=== PATIENT | male | born 1930 | race Caucasian/White ===

== ENCOUNTER → 2017-01-14 | Outpatient (CLI) | payer MEDICARE, OTHER | LOC: LAB 14:26 | DX: I10 Essential (primary) hypertension (principal); J44.0 Chronic obstructive pulmonary disease with (acute) lower respiratory infection; I48.0 Paroxysmal atrial fibrillation; B86 Scabies; B35.3 Tinea pedis; L30.8 Other specified dermatitis ==

== ENCOUNTER → 2017-04-14 | Outpatient (CLI) | payer MEDICARE, OTHER ==
[~2017-04-14] VITALS: Ht 167.6 cm; Wt 84.1 kg
[~2017-04-14] MED LIST: ASPIRIN 32325 MG/TAB PO; CALCIUM-VITAMI1 EAC1 PO; CERAVE453 GM TP; CLOBETASOL OINT TOP; HYDROCHLOROTHIA1 T14 PO; ISOSORBIDE30 MG PO; NATURAL VITAM1000 MG PO; OMEPRAZOLE20 MG PO; SPECTAZOLE 1% C15 GM TP; THEO-24 20200 MG/CAP PO; VITAMIN E1000 UNI1 PO; XARELTO20 MG PO
[2017-04-14 12:06] VITALS: BP 139/75
== END ==
LOC: AMSURD 11:48
DX: H25.13 Age-related nuclear cataract, bilateral (principal); I48.0 Paroxysmal atrial fibrillation; I12.9 Hypertensive chronic kidney disease with stage 1 through stage 4 chronic kidney disease, or unspecified chronic kidney disease; I87.2 Venous insufficiency (chronic) (peripheral); J44.0 Chronic obstructive pulmonary disease with (acute) lower respiratory infection

== ENCOUNTER → 2017-12-26 | Outpatient (CLI) | payer MEDICARE, OTHER ==
[2017-04-14 12:06] VITALS: BP 139/75
[2017-12-26 09:13] LABS: ALBUMIN 4.1 g/dL (3.5-5.0); BUN/CREATININE RATIO 14.8 (6.0-26.0); CALCIUM 9.6 mg/dL (8.4-10.2); POTASSIUM 4.7 mmol/L (3.6-5.0); TOTAL BILIRUBIN 0.8 mg/dL (0.2-1.3); TOTAL PROTEIN 7.6 g/dL (6.3-8.2)
== END ==
LOC: LAB 08:32
PROVIDERS: Family Medicine
DX: Z00.00 Encounter for general adult medical examination without abnormal findings (principal); E78.5 Hyperlipidemia, unspecified; I12.9 Hypertensive chronic kidney disease with stage 1 through stage 4 chronic kidney disease, or unspecified chronic kidney disease; I35.0 Nonrheumatic aortic (valve) stenosis; I48.0 Paroxysmal atrial fibrillation; J44.9 Chronic obstructive pulmonary disease, unspecified; L28.1 Prurigo nodularis; D16.20 Benign neoplasm of long bones of unspecified lower limb

== ENCOUNTER → 2018-08-29 | Outpatient (CLI) | payer MEDICARE, OTHER ==
[2017-04-14 12:06] VITALS: BP 139/75
[2018-08-29 11:23] LABS: ALBUMIN 4.3 g/dL (3.5-5.0); AST-SGOT 34 U/L (17-59); CALCIUM 9.2 mg/dL (8.4-10.2); CARBON DIOXIDE 25 mmol/L (22-30); GLUCOSE 94 mg/dL (75-110); SODIUM 136 mmol/L (137-145); TOTAL BILIRUBIN 0.5 mg/dL (0.2-1.3); TOTAL PROTEIN 7.2 g/dL (6.3-8.2)
[2018-08-29 11:40] LABS: HEMATOCRIT 33.5 % (42.0-52.0); HEMOGLOBIN 11.1 g/dL (13.5-18.0); MEAN PLATELET VOLUME 9.3 fl (7.4-10.4); RED BLOOD COUNT 3.65 M/mm3 (4.20-5.60); RED CELL DISTRIBUTION WIDTH 12.7 % (11.5-14.5); WHITE BLOOD COUNT 6.7 K/mm3 (4.8-10.8)
[2018-08-29 11:52] LABS: ALT/SGPT < 3 U/L (21-72)
== END ==
LOC: LAB 10:56
PROVIDERS: Internal Medicine Interventional Cardiology
DX: I99.8 Other disorder of circulatory system (principal)

== ENCOUNTER → 2018-09-25 | Outpatient (CLI) | payer MEDICARE, OTHER ==
[2017-04-14 12:06] VITALS: BP 139/75
== END ==
LOC: RAD 16:54
DX: R05 Cough (principal)

== ENCOUNTER → 2018-09-29 | Outpatient (CLI) | payer MEDICARE, OTHER ==
[2017-04-14 12:06] VITALS: BP 139/75
[2018-09-29 12:05] LABS: ALBUMIN 4.3 g/dL (3.5-5.0); DIRECT BILIRUBIN 0.4 mg/dL (0.0-0.4); TOTAL BILIRUBIN 0.4 mg/dL (0.2-1.3); TOTAL PROTEIN 7.1 g/dL (6.3-8.2)
== END ==
LOC: LAB 11:10
PROVIDERS: Family Medicine
DX: I48.0 Paroxysmal atrial fibrillation (principal)

== ENCOUNTER 2019-01-29 11:19 | Emergency (ER) | payer MEDICARE, OTHER ==
[~2019-01-29] VITALS: Ht 165.1 cm; Wt 86.4 kg
[2019-01-29 12:04] LABS: POTASSIUM 4.6 mmol/L (3.5-5.1); SODIUM 134 mmol/L (136-145)
[2019-01-29] MEDS ORDERED: ASPIRIN 81M81 MG/TA2 PO (12:05)
[2019-01-29 12:06] LABS: CALCIUM 9.2 mg/dL (8.3-10.5); EOS # 0.2 (0.04-0.40); EOS % 2.6 % (0.0-4.0); HEMATOCRIT 27.6 % (42.0-52.0); HEMOGLOBIN 8.8 g/dL (13.5-18.0); MEAN CELL VOLUME 82 fl (78-100); MEAN CORPUSCULAR HEMOGLOBIN 26 pg (27-31); MEAN CORPUSCULAR HGB CONC 32 g/dL (33-37); MONO # 0.8 (0.20-0.80); NEU # 6.1 (1.40-6.50); PLATELET COUNT 315 K/mm3 (130-400); RED BLOOD COUNT 3.35 M/mm3 (4.20-5.60); RED CELL DISTRIBUTION WIDTH 15.5 % (11.5-14.5); WHITE BLOOD COUNT 8.1 K/mm3 (4.8-10.8)
[2019-01-29 12:07] LABS: TOTAL PROTEIN 6.8 g/dL (6.2-8.1)
[2019-01-29 12:08] LABS: CARBON DIOXIDE 21 mmol/L (23-31); GLUCOSE 101 mg/dL (75-110)
[2019-01-29 12:09] LABS: TOTAL BILIRUBIN 0.3 mg/dL (0.2-1.2)
[2019-01-29] MEDS ORDERED: RANOLAZINE ER500 MG PO (12:10)
[2019-01-29 12:12] LABS: AST-SGOT 20 U/L (5-34)
[2019-01-29 12:15] LABS: ALT/SGPT 14 U/L (0-55)
[2019-01-29] MEDS ORDERED: CORDARONE200 MG/TAB PO (12:17)
[2019-01-29 12:38] LABS: TROPONIN-I < 0.03 ng/mL (<0.030)
[2019-01-29 13:37] LABS: D-DIMER 0.35 mg/L FEU (0.15-0.50)
[2019-01-29 14:09] VITALS: BP 93/56
== END 2019-01-29 14:04 | disposition home or self-care (01) ==
LOC: ED 11:19
PROVIDERS: Nurse Practitioner Primary Care
DX: E86.0 Dehydration (principal); R06.00 Dyspnea, unspecified; I48.91 Unspecified atrial fibrillation; I10 Essential (primary) hypertension; J44.9 Chronic obstructive pulmonary disease, unspecified; E78.5 Hyperlipidemia, unspecified; Z79.01 Long term (current) use of anticoagulants

== ENCOUNTER → 2019-01-31 | Outpatient (CLI) | payer MEDICARE, OTHER ==
[2019-01-29 14:09] VITALS: BP 93/56
[~2019-01-31] MED LIST changes: +ASPIRIN 81M81 MG/TA2 PO; +CORDARONE200 MG/TAB PO; +RANOLAZINE ER500 MG PO
[2019-01-31 15:50] LABS: HEMATOCRIT 27.7 % (42.0-52.0); HEMOGLOBIN 8.9 g/dL (13.5-18.0)
== END ==
LOC: LAB 15:26
PROVIDERS: Nurse Practitioner Primary Care
DX: E86.0 Dehydration (principal); R06.09 Other forms of dyspnea

== ENCOUNTER → 2019-02-05 | Outpatient (CLI) | payer MEDICARE, OTHER ==
[2019-01-29 14:09] VITALS: BP 93/56
== END ==
LOC: LAB 11:28
DX: D64.9 Anemia, unspecified (principal)

== ENCOUNTER → 2019-04-30 | Outpatient (CLI) | payer MEDICARE, OTHER ==
[2019-04-30 09:55] LABS: EOS # 0.3 (0.04-0.40); EOS % 4.9 % (0.0-4.0); HEMATOCRIT 33.8 % (42.0-52.0); HEMOGLOBIN 11.3 g/dL (13.5-18.0); MEAN CELL VOLUME 94 fl (78-100); MEAN CORPUSCULAR HEMOGLOBIN 31 pg (27-31); MEAN CORPUSCULAR HGB CONC 33 g/dL (33-37); MEAN PLATELET VOLUME 9.2 fl (7.4-10.4); MONO # 0.7 (0.20-0.80); NEU # 4.6 (1.40-6.50); PLATELET COUNT 251 K/mm3 (130-400); RED BLOOD COUNT 3.61 M/mm3 (4.20-5.60); RED CELL DISTRIBUTION WIDTH 15.4 % (11.5-14.5); WHITE BLOOD COUNT 6.7 K/mm3 (4.8-10.8)
[2019-04-30 10:01] LABS: CALCIUM 9.3 mg/dL (8.3-10.5)
[2019-04-30 10:02] LABS: TOTAL PROTEIN 6.8 g/dL (6.2-8.1)
[2019-04-30 10:04] LABS: TOTAL BILIRUBIN 0.4 mg/dL (0.2-1.2)
== END ==
LOC: LAB 09:24
PROVIDERS: Internal Medicine Interventional Cardiology
DX: R06.02 Shortness of breath (principal)

== ENCOUNTER → 2019-06-25 | Outpatient (CLI) | payer MEDICARE, OTHER ==
[2019-06-25 11:53] LABS: HEMATOCRIT 29.3 % (42.0-52.0); HEMOGLOBIN 9.6 g/dL (13.5-18.0); MEAN PLATELET VOLUME 8.9 fl (7.4-10.4); WHITE BLOOD COUNT 9.3 K/mm3 (4.8-10.8)
[2019-06-25 12:13] LABS: POTASSIUM 4.9 mmol/L (3.5-5.1)
[2019-06-25 12:14] LABS: CALCIUM 8.9 mg/dL (8.3-10.5)
== END ==
LOC: LAB 11:26
PROVIDERS: Family Medicine
DX: D64.9 Anemia, unspecified (principal); I10 Essential (primary) hypertension

== ENCOUNTER → 2019-07-06 | Outpatient (CLI) | payer MEDICARE, OTHER | LOC: LAB 11:30 | PROVIDERS: Family Medicine | DX: I12.9 Hypertensive chronic kidney disease with stage 1 through stage 4 chronic kidney disease, or unspecified chronic kidney disease (principal) ==

== ENCOUNTER 2019-07-18 15:30 | Outpatient (RCR) | payer MEDICARE, OTHER ==
[~2019-07-18 15:30] MED LIST changes: -OMEPRAZOLE20 MG PO; +PRILOSEC OTC20 MG PO
[2019-08-22] MEDS ORDERED: RT ADVAIR HFA 1112 G IH (14:19)
[2019-08-22] MEDS ORDERED: AMLODIPINE BES2.5 MG PO (14:20)
[2019-08-22] MEDS ORDERED: ATROVENT I0.2 MG/1 M IH (14:20)
[2019-08-22] MEDS ORDERED: PRINIVIL10 M1 PO (14:21)
[2019-08-22] MEDS ORDERED: FLONASE ALLERG9.9 ML NS (14:22)
[2019-08-22] MEDS ORDERED: RANEXA500 M1 PO (14:23)
[2019-08-28] MEDS ORDERED: AMIODARONE200 MG PO (21:20)
== END 2019-09-12 | disposition still patient (30) ==
LOC: PT
DX: R26.81 Unsteadiness on feet (principal); R53.81 Other malaise

== ENCOUNTER → 2019-07-25 | Outpatient (CLI) | payer MEDICARE, OTHER ==
[~2019-07-25] MED LIST changes: +OMEPRAZOLE20 MG PO; -PRILOSEC OTC20 MG PO
[2019-07-25 22:33] LABS: FOLATE (FOLIC ACID) 11.2 ng/mL (7.0-31.4)
== END ==
LOC: LAB 13:32
PROVIDERS: Family Medicine
DX: D64.9 Anemia, unspecified (principal)

== ENCOUNTER 2019-08-22 13:48 | Emergency (ER) | payer MEDICARE, OTHER ==
[~2019-08-22] VITALS: Ht 172.7 cm; Wt 93.6 kg
[~2019-08-22 13:48] MED LIST changes: -OMEPRAZOLE20 MG PO; +PRILOSEC OTC20 MG PO
[2019-08-22] MEDS ORDERED: RT ADVAIR HFA 1112 G IH (14:19)
[2019-08-22] MEDS ORDERED: AMLODIPINE BES2.5 MG PO (14:20)
[2019-08-22] MEDS ORDERED: ATROVENT I0.2 MG/1 M IH (14:20)
[2019-08-22] MEDS ORDERED: PRINIVIL10 M1 PO (14:21)
[2019-08-22] MEDS ORDERED: FLONASE ALLERG9.9 ML NS (14:22)
[2019-08-22] MEDS ORDERED: RANEXA500 M1 PO (14:23)
[2019-08-22 14:31] LABS: HEMATOCRIT 30.8 % (42.0-52.0); HEMOGLOBIN 9.7 g/dL (13.5-18.0); MEAN CELL VOLUME 99 fl (78-100); MEAN CORPUSCULAR HEMOGLOBIN 31 pg (27-31); MEAN CORPUSCULAR HGB CONC 32 g/dL (33-37); MEAN PLATELET VOLUME 9.4 fl (7.4-10.4); PLATELET COUNT 216 K/mm3 (130-400); RED BLOOD COUNT 3.11 M/mm3 (4.20-5.60); RED CELL DISTRIBUTION WIDTH 13.4 % (11.5-14.5); WHITE BLOOD COUNT 12.2 K/mm3 (4.8-10.8)
[2019-08-22 14:34] LABS: ALBUMIN 3.9 g/dL (3.4-4.8); POTASSIUM 3.9 mmol/L (3.5-5.1); SODIUM 133 mmol/L (136-145)
[2019-08-22 14:36] LABS: GLUCOSE 121 mg/dL (75-110); TOTAL PROTEIN 6.6 g/dL (6.2-8.1)
[2019-08-22 14:37] LABS: CARBON DIOXIDE 18 mmol/L (23-31)
[2019-08-22 14:38] LABS: TOTAL BILIRUBIN 0.4 mg/dL (0.2-1.2)
[2019-08-22 14:42] LABS: AST-SGOT 31 U/L (5-34)
[2019-08-22 14:43] LABS: ALT/SGPT 26 U/L (0-55)
[2019-08-22 14:46] LABS: NEUTROPHILS 92 % (42-75)
[2019-08-22 14:47] LABS: LYMPHOCYTE 2 % (20-51); MONOCYTE 6 % (3-10)
[2019-08-22 14:49] LABS: TROPONIN-I < 0.03 ng/mL (<0.030)
[2019-08-22 16:10] LABS: URINE APPEARANCE CLEAR; URINE BILIRUBIN NEGATIVE (NEGATIVE); URINE BLOOD TRACE (NEGATIVE); URINE COLOR YELLOW; URINE GLUCOSE NEGATIVE (NEGATIVE); URINE KETONE NEGATIVE (NEGATIVE); URINE LEUKOCYTE ESTERASE NEGATIVE (NEGATIVE); URINE NITRATE NEGATIVE (NEGATIVE); URINE PROTEIN(semi-quant) 1+ mg/dL (NEGATIVE); URINE UROBILINOGEN NORMAL (NORMAL)
[2019-08-22 19:34] VITALS: BP 92/55
== END 2019-08-22 19:35 | disposition short-term general hospital (02) ==
LOC: ED 13:48
PROVIDERS: Family Medicine; Physician Assistant
DX: J44.9 Chronic obstructive pulmonary disease, unspecified (principal); J18.9 Pneumonia, unspecified organism; R06.03 Acute respiratory distress; I10 Essential (primary) hypertension; I48.91 Unspecified atrial fibrillation; K21.9 Gastro-esophageal reflux disease without esophagitis; Z79.82 Long term (current) use of aspirin; Z95.0 Presence of cardiac pacemaker
CPT/HCPCS: A4216; A4618; J0456; J0696; J1940; J2405; J2930; J7050

== ENCOUNTER → 2019-08-30 | Outpatient (CLI) | payer MEDICARE, OTHER ==
[~2019-08-30] MED LIST changes: +AMIODARONE200 MG PO; +AMLODIPINE BES2.5 MG PO; +ATROVENT I0.2 MG/1 M IH; +FLONASE ALLERG9.9 ML NS; +PRINIVIL10 M1 PO; +RANEXA500 M1 PO; +RT ADVAIR HFA 1112 G IH
[2019-08-30 14:33] VITALS: BP 142/71
[2019-08-30 15:32] LABS: HEMOGLOBIN 9.9 g/dL (13.5-18.0); MEAN CELL VOLUME 99 fl (78-100); MEAN CORPUSCULAR HEMOGLOBIN 31 pg (27-31); MEAN CORPUSCULAR HGB CONC 31 g/dL (33-37); MEAN PLATELET VOLUME 8.9 fl (7.4-10.4); PLATELET COUNT 357 K/mm3 (130-400); RED BLOOD COUNT 3.25 M/mm3 (4.20-5.60); RED CELL DISTRIBUTION WIDTH 13.1 % (11.5-14.5); WHITE BLOOD COUNT 9.4 K/mm3 (4.8-10.8)
[2019-08-30 16:00] LABS: ALBUMIN 3.8 g/dL (3.4-4.8); POTASSIUM 4.6 mmol/L (3.5-5.1)
[2019-08-30 16:01] LABS: CALCIUM 8.7 mg/dL (8.3-10.5)
[2019-08-30 16:02] LABS: TOTAL PROTEIN 6.8 g/dL (6.2-8.1)
[2019-08-30 16:04] LABS: TOTAL BILIRUBIN 0.2 mg/dL (0.2-1.2)
[2019-08-31 14:13] LABS: LYMPHOCYTE 19 % (20-51); MONOCYTE 8 % (3-10); NEUTROPHILS 66 % (42-75)
== END ==
LOC: LAB 15:20
PROVIDERS: Family Medicine
DX: J44.9 Chronic obstructive pulmonary disease, unspecified (principal); I48.0 Paroxysmal atrial fibrillation; J18.9 Pneumonia, unspecified organism; D64.9 Anemia, unspecified; I35.0 Nonrheumatic aortic (valve) stenosis; R79.89 Other specified abnormal findings of blood chemistry

== ENCOUNTER 2019-08-31 14:17 | Outpatient (RCR) | payer MEDICARE, OTHER ==
[2019-08-28 14:30] VITALS: BP 139/70
[2019-08-29 13:58] VITALS: BP 129/66
[2019-08-30 14:33] VITALS: BP 142/71
[~2019-08-31] VITALS: Ht 165.1 cm; Wt 84.1 kg
[2019-08-31 14:32] VITALS: BP 167/78
== END 2019-08-31 14:30 ==
LOC: AMSURD 14:17
DX: Z79.2 Long term (current) use of antibiotics (principal); B95.1 Streptococcus, group B, as the cause of diseases classified elsewhere
CPT/HCPCS: J0696

== ENCOUNTER → 2019-09-13 | Outpatient (CLI) | payer MEDICARE, OTHER ==
[2019-08-31 14:32] VITALS: BP 167/78
== END ==
LOC: LAB 14:10
DX: I48.0 Paroxysmal atrial fibrillation (principal); J18.9 Pneumonia, unspecified organism; J44.9 Chronic obstructive pulmonary disease, unspecified; D64.9 Anemia, unspecified; I35.0 Nonrheumatic aortic (valve) stenosis

== ENCOUNTER → 2020-02-29 | Outpatient (CLI) | payer MEDICARE, OTHER ==
[2020-02-29 11:57] LABS: HEMATOCRIT 37.5 % (42.0-52.0); HEMOGLOBIN 12.6 g/dL (13.5-18.0); MEAN PLATELET VOLUME 9.1 fl (7.4-10.4); RED BLOOD COUNT 4.1 M/mm3 (4.20-5.60); WHITE BLOOD COUNT 7.2 K/mm3 (4.8-10.8)
[2020-02-29 12:07] LABS: CALCIUM 9.3 mg/dL (8.3-10.5)
== END ==
LOC: LAB 11:40 → RAD 11:40
PROVIDERS: Family Medicine
DX: M51.36 Other intervertebral disc degeneration, lumbar region (principal); M47.816 Spondylosis without myelopathy or radiculopathy, lumbar region; M41.86 Other forms of scoliosis, lumbar region

== ENCOUNTER 2020-04-07 11:15 | Outpatient (RCR) | payer MEDICARE, OTHER ==
[~2020-04-07 11:15] MED LIST changes: +FEOSOL325 MG PO; +FLUTICASON0.05 MG/AC NS; +LEVOTHYROXIN0.088 MG PO; +NAPROXEN500 MG PO; +PREDNISONE20 M1 PO; +TRAMADOL 50 MG TAB PO
== END 2020-04-07 12:00 | disposition still patient (30) ==
LOC: PT 11:15
DX: M54.2 Cervicalgia (principal)

== ENCOUNTER → 2020-09-09 | Outpatient (CLI) | payer MEDICARE, OTHER ==
[2020-03-26 15:10] VITALS: BP 141/89
[~2020-09-09] MED LIST changes: +ALLEGRA ALLERGY60 MG PO; +AMOXICILLIN875 MG PO; +CEFDINIR300 MG PO; +CEPHALEXIN500 M2 PO; +CLOBETASOL PROP15 GM TP; +DEXAMETHASONE2 M1 PO; +LIPITOR 10M10 MG/TAB PO; +LISINOPRIL10 MG PO; +MUPIROCIN2% TP; +NORVASC 5MG5 MG/TAB PO; +PACERONE200 MG PO; -PRINIVIL10 M1 PO; +SEPTRA DS 8001 TAB PO; +TOPROL XL100 MG PO
[2020-09-09 09:16] LABS: EOS # 0.2 (0.04-0.40); EOS % 3.8 % (0.0-4.0); HEMATOCRIT 40.2 % (42.0-52.0); HEMOGLOBIN 13.3 g/dL (13.5-18.0); LYMPH# 1.1 (1.50-4.00); MEAN CELL VOLUME 93 fl (78-100); MEAN CORPUSCULAR HEMOGLOBIN 31 pg (27-31); MEAN CORPUSCULAR HGB CONC 33 g/dL (33-37); MEAN PLATELET VOLUME 9.4 fl (7.4-10.4); MONO # 0.7 (0.20-0.80); NEU # 3.8 (1.40-6.50); PLATELET COUNT 209 K/mm3 (130-400); RED BLOOD COUNT 4.33 M/mm3 (4.20-5.60); RED CELL DISTRIBUTION WIDTH 13.2 % (11.5-14.5); WHITE BLOOD COUNT 5.7 K/mm3 (4.8-10.8)
[2020-09-09 09:24] LABS: POTASSIUM 4.3 mmol/L (3.5-5.1)
[2020-09-09 09:25] LABS: CALCIUM 9.5 mg/dL (8.3-10.5)
== END ==
LOC: LAB 08:30
PROVIDERS: Family Medicine
DX: N18.30 Chronic kidney disease, stage 3 unspecified (principal); I25.10 Atherosclerotic heart disease of native coronary artery without angina pectoris; D64.9 Anemia, unspecified; E03.9 Hypothyroidism, unspecified; I73.9 Peripheral vascular disease, unspecified

== ENCOUNTER → 2020-11-05 | Outpatient (CLI) | payer MEDICARE, OTHER ==
[2020-03-26 15:10] VITALS: BP 141/89
[2020-11-05 14:55] LABS: HEMATOCRIT 38.1 % (42.0-52.0); HEMOGLOBIN 12.5 g/dL (13.5-18.0); MEAN PLATELET VOLUME 9.5 fl (7.4-10.4); RED BLOOD COUNT 4.11 M/mm3 (4.20-5.60); WHITE BLOOD COUNT 9.2 K/mm3 (4.8-10.8)
[2020-11-05 15:16] LABS: POTASSIUM 4.4 mmol/L (3.5-5.1)
[2020-11-05 15:18] LABS: CALCIUM 9.1 mg/dL (8.3-10.5)
== END ==
LOC: LAB 14:36
PROVIDERS: Internal Medicine Interventional Cardiology
DX: Z01.812 Encounter for preprocedural laboratory examination (principal); Z11.59 Encounter for screening for other viral diseases; L28.1 Prurigo nodularis; R60.0 Localized edema; Z20.822 Contact with and (suspected) exposure to COVID-19

== ENCOUNTER 2020-12-02 19:51 | Emergency (ER) | payer MEDICARE, OTHER ==
[~2020-12-02 19:51] MED LIST changes: -ALLEGRA ALLERGY60 MG PO; -AMOXICILLIN875 MG PO; -CEFDINIR300 MG PO; -CEPHALEXIN500 M2 PO; -CLOBETASOL PROP15 GM TP; -DEXAMETHASONE2 M1 PO; -LIPITOR 10M10 MG/TAB PO; -MUPIROCIN2% TP; -NORVASC 5MG5 MG/TAB PO; -PACERONE200 MG PO; -SEPTRA DS 8001 TAB PO; -TOPROL XL100 MG PO
[2020-12-02] MEDS ORDERED: TOPROL XL100 MG PO (20:30)
[2020-12-02] MEDS ORDERED: RANEXA500 M1 PO (20:31)
[2020-12-02] MEDS ORDERED: PACERONE200 MG PO (20:31)
[2020-12-02] MEDS ORDERED: NORVASC 5MG5 MG/TAB PO (20:32)
[2020-12-02] MEDS ORDERED: LIPITOR 10M10 MG/TAB PO (20:33)
[2020-12-02 21:04] LABS: HEMATOCRIT 40.1 % (42.0-52.0); HEMOGLOBIN 13.6 g/dL (13.5-18.0); MEAN CELL VOLUME 91 fl (78-100); MEAN CORPUSCULAR HEMOGLOBIN 31 pg (27-31); MEAN CORPUSCULAR HGB CONC 34 g/dL (33-37); MEAN PLATELET VOLUME 9.2 fl (7.4-10.4); PLATELET COUNT 205 K/mm3 (130-400); WHITE BLOOD COUNT 11.5 K/mm3 (4.8-10.8)
[2020-12-02 21:07] LABS: ALBUMIN 4.1 g/dL (3.4-4.8)
[2020-12-02 21:08] LABS: POTASSIUM 4.7 mmol/L (3.5-5.1)
[2020-12-02 21:09] LABS: CALCIUM 9.4 mg/dL (8.3-10.5)
[2020-12-02 21:10] LABS: TOTAL PROTEIN 7.3 g/dL (6.2-8.1)
[2020-12-02 21:47] LABS: TOTAL BILIRUBIN 0.7 mg/dL (0.2-1.2)
[2020-12-02 21:56] LABS: LYMPHOCYTE 2 % (20-51); MONOCYTE 6 % (3-10); NEUTROPHILS 90 % (42-75)
[2020-12-02 21:58] LABS: URINE APPEARANCE CLEAR; URINE BILIRUBIN NEGATIVE (NEGATIVE); URINE BLOOD NEGATIVE (NEGATIVE); URINE COLOR YELLOW; URINE GLUCOSE NEGATIVE (NEGATIVE); URINE KETONE NEGATIVE (NEGATIVE); URINE LEUKOCYTE ESTERASE NEGATIVE (NEGATIVE); URINE NITRATE NEGATIVE (NEGATIVE); URINE PROTEIN(semi-quant) NEGATIVE (NEGATIVE); URINE UROBILINOGEN NORMAL (NORMAL); URINE WBC 0-1 /hpf (0-3)
[2020-12-02 21:59] LABS: URINE MUCUS PRESENT (NOT PRESENT)
[2020-12-02 22:52] VITALS: BP 126/69
[2020-12-03] MEDS ORDERED: CEFDINIR300 MG PO (11:31)
[2021-02-17] MEDS ORDERED: MUPIROCIN2% TP (11:33)
[2021-02-17] MEDS ORDERED: CEPHALEXIN500 M2 PO (11:33)
[2021-05-10] MEDS ORDERED: SEPTRA DS 8001 TAB PO (22:26)
[2021-05-10] MEDS ORDERED: AMOXICILLIN875 MG PO (22:26)
[2021-05-10] MEDS ORDERED: CLOBETASOL PROP15 GM TP (22:29)
[2021-05-10] MEDS ORDERED: ALLEGRA ALLERGY60 MG PO (22:29)
[2021-05-10] MEDS ORDERED: RANOLAZINE ER500 MG PO (22:29)
[2021-05-16] MEDS ORDERED: ISOSORBIDE30 MG PO (00:14)
[2021-05-26] MEDS ORDERED: DEXAMETHASONE2 M1 PO (12:54)
== END 2020-12-02 22:52 | disposition other institution (70) ==
LOC: ED 19:51
PROVIDERS: Nurse Practitioner Family
DX: J44.1 Chronic obstructive pulmonary disease with (acute) exacerbation (principal); J18.9 Pneumonia, unspecified organism; I13.0 Hypertensive heart and chronic kidney disease with heart failure and stage 1 through stage 4 chronic kidney disease, or unspecified chronic kidney disease; I50.9 Heart failure, unspecified; N18.9 Chronic kidney disease, unspecified; E86.0 Dehydration; I48.91 Unspecified atrial fibrillation; E03.9 Hypothyroidism, unspecified; R50.9 Fever, unspecified; Z95.0 Presence of cardiac pacemaker; Z79.01 Long term (current) use of anticoagulants; Z79.82 Long term (current) use of aspirin; Z79.899 Other long term (current) drug therapy; Z79.890 Hormone replacement therapy; Z20.822 Contact with and (suspected) exposure to COVID-19
CPT/HCPCS: J7030

== ENCOUNTER 2020-12-04 11:08 | Inpatient (IN) | payer MEDICARE, OTHER ==
[~2020-12-04] VITALS: Ht 160 cm; Wt 89.1 kg
[~2020-12-04 11:08] MED LIST changes: +CEFDINIR300 MG PO; +LIPITOR 10M10 MG/TAB PO; +NORVASC 5MG5 MG/TAB PO; +PACERONE200 MG PO; +TOPROL XL100 MG PO
[2020-12-04 11:45] VITALS: BP 130/80
[2020-12-04 11:51] LABS: URINE APPEARANCE CLEAR; URINE COLOR YELLOW
[2020-12-04 11:52] LABS: URINE BILIRUBIN NEGATIVE (NEGATIVE); URINE BLOOD TRACE (NEGATIVE); URINE GLUCOSE NEGATIVE (NEGATIVE); URINE KETONE NEGATIVE (NEGATIVE); URINE NITRATE NEGATIVE (NEGATIVE); URINE PROTEIN(semi-quant) NEGATIVE (NEGATIVE); URINE UROBILINOGEN NORMAL (NORMAL)
[2020-12-04 11:57] LABS: BASO # 0.01 (0.02-0.10); EOS # 0.02 (0.04-0.40); EOS % 0.1 % (0.0-4.0); HEMATOCRIT 38.9 % (42.0-52.0); HEMOGLOBIN 13.1 g/dL (13.5-18.0); LYMPH# 1.12 (1.50-4.00); MEAN CELL VOLUME 90 fl (78-100); MEAN CORPUSCULAR HEMOGLOBIN 30 pg (27-31); MEAN CORPUSCULAR HGB CONC 34 g/dL (33-37); MEAN PLATELET VOLUME 9.4 fl (7.4-10.4); MONO # 1.44 (0.20-0.80); NEU # 15.53 (1.40-6.50); PLATELET COUNT 231 K/mm3 (130-400); RED BLOOD COUNT 4.31 M/mm3 (4.20-5.60); RED CELL DISTRIBUTION WIDTH 13.1 % (11.5-14.5); WHITE BLOOD COUNT 18.2 K/mm3 (4.8-10.8)
[2020-12-04 12:01] LABS: POTASSIUM 4.4 mmol/L (3.5-5.1)
[2020-12-04 12:02] LABS: CALCIUM 9.3 mg/dL (8.3-10.5)
[2020-12-04 12:05] LABS: TOTAL BILIRUBIN 0.4 mg/dL (0.2-1.2)
[2020-12-04 13:16] LABS: ERYTHROCYTE SEDIMENTATION RATE 18 mm/hr (0-20)
--- NOTE | 2020-12-04 15:17 | NUR ---
SPEAK WITH DENISA PRESLEY REGARDING IV FLUID ORDERS. INTENT WAS FOR PATIENT TO RECEIVE 1L NS AT 500ML/HR AND THEN DECREASE TO 83ML/HR.
[2020-12-04 17:31] VITALS: BP 118/78
--- NOTE | 2020-12-04 19:05 | NUR ---
Report received from Asya Wilkinson RN and Rocio Parada RN
[2020-12-04 21:48] VITALS: BP 126/73
[2020-12-05 00:04] LABS: URINE LEUKOCYTE ESTERASE NEGATIVE (NEGATIVE)
[2020-12-05 02:07] VITALS: BP 119/74
[2020-12-05 05:43] VITALS: BP 121/79
--- NOTE | 2020-12-05 07:00 | NUR ---
Report received from RALF Ramos. Pt resting in bed with eyes closed.
--- NOTE | 2020-12-05 07:17 | NUR ---
Report to Jas Bee LPN.
[2020-12-05 07:24] LABS: BASO # 0.02 (0.02-0.10); EOS # 0.13 (0.04-0.40); EOS % 1.2 % (0.0-4.0); HEMATOCRIT 36.9 % (42.0-52.0); HEMOGLOBIN 12.3 g/dL (13.5-18.0); LYMPH# 1.17 (1.50-4.00); MEAN CELL VOLUME 92 fl (78-100); MEAN CORPUSCULAR HEMOGLOBIN 31 pg (27-31); MEAN CORPUSCULAR HGB CONC 33 g/dL (33-37); MEAN PLATELET VOLUME 9.6 fl (7.4-10.4); MONO # 1.02 (0.20-0.80); NEU # 8.84 (1.40-6.50); PLATELET COUNT 212 K/mm3 (130-400); RED BLOOD COUNT 4.03 M/mm3 (4.20-5.60); RED CELL DISTRIBUTION WIDTH 13.6 % (11.5-14.5); WHITE BLOOD COUNT 11.2 K/mm3 (4.8-10.8)
[2020-12-05 07:57] LABS: POTASSIUM 4.5 mmol/L (3.5-5.1)
[2020-12-05 07:59] LABS: CALCIUM 8.6 mg/dL (8.3-10.5)
--- NOTE | 2020-12-05 08:55 | NUR ---
SPOKE TO LAZARA AT [facility] FOR PICC LINE PLACEMENT. THEY WOULD LIKE PATIENT TO ARRIVE AT 11:00; EMS NOTIFIED AND ARRANGEMENTS MADE FOR TRANSPORTATION. PATIENT IS UPDATED. PROVIDER IS UPDATED ON TIME.
[2020-12-05 10:00] VITALS: BP 111/67
--- NOTE | 2020-12-05 10:15 | NUR ---
PT UP IN CHAIR / TO BATHROOM THIS AM. PT HAS NO NEEDS/COMPLAINTS AT THIS TIME. PATIENT BEING TRANSPORTED TO [facility]IA [facility] FOR PICC LINE PLACEMENT AT 1020.
--- NOTE | 2020-12-05 13:32 | NUR ---
RALF Mojica called and reported that the PICC was placed and is 41cm long. Nurse states it took 2 "sticks" due to dehydration. No other concerns at this time.
--- NOTE | 2020-12-05 15:30 | NUR ---
PATIENT RETURNED VIA TRANSPORT AT 1530 FROM PICC LINE PLACEMENT. PATIENT TOLERATED PROCEDURE WELL. PATIENT CURRENTLY IN BED; NO NEEDS/COMPLAINTS AT THIS TIME.
--- NOTE | 2020-12-05 17:00 | NUR ---
Report received from Jenifer Marin RN and Jas Bee LPN. IV fluids infusing at 83mls/hour. C/o's of PICC line being sore. Wraped warm blanket around PICC site located in right upper arm. Chilango wrap applied around PICC for padding if site gets bumped. Offered to get a order for tylenol, pt declined.
[2020-12-05 17:43] VITALS: BP 160/95
[2020-12-05 21:17] VITALS: BP 137/78
--- NOTE | 2020-12-06 01:30 | NUR ---
IV fluids infused. New bag of NS hung, continues to infuse at 83mls/hr. Has been sleeping with C-pap on. Continues on tele-monitor.
[2020-12-06 01:47] VITALS: BP 136/77
--- NOTE | 2020-12-06 05:20 | NUR ---
Report given to Mercedes Joseph RN
[2020-12-06 05:54] VITALS: BP 156/74
[2020-12-06 06:41] LABS: BASO # 0.03 (0.02-0.10); EOS # 0.22 (0.04-0.40); EOS % 2.6 % (0.0-4.0); HEMATOCRIT 31.8 % (42.0-52.0); HEMOGLOBIN 10.7 g/dL (13.5-18.0); LYMPH# 0.98 (1.50-4.00); MEAN CELL VOLUME 92 fl (78-100); MEAN CORPUSCULAR HEMOGLOBIN 31 pg (27-31); MEAN CORPUSCULAR HGB CONC 34 g/dL (33-37); MEAN PLATELET VOLUME 9.4 fl (7.4-10.4); MONO # 0.82 (0.20-0.80); NEU # 6.38 (1.40-6.50); PLATELET COUNT 192 K/mm3 (130-400); RED BLOOD COUNT 3.47 M/mm3 (4.20-5.60); RED CELL DISTRIBUTION WIDTH 13.8 % (11.5-14.5); WHITE BLOOD COUNT 8.5 K/mm3 (4.8-10.8)
--- NOTE | 2020-12-06 07:00 | NUR ---
Report received from RALF Hunt.
[2020-12-06 08:02] LABS: POTASSIUM 3.9 mmol/L (3.5-5.1)
[2020-12-06 08:03] LABS: CALCIUM 7.6 mg/dL (8.3-10.5)
[2020-12-06 09:43] VITALS: BP 124/77
--- NOTE | 2020-12-06 09:52 | NUR ---
Report taken from RALF Sanchez. Administered breathing treatment. Pt tolerated it well. Pt in chair resting comfortably.
--- NOTE | 2020-12-06 11:12 | NUR ---
Per pt's request, [facility] notified of pt's need for a new strap set up for his cpap. Staff will notify their RT personnal on Tuesday when she returns.
--- NOTE | 2020-12-06 13:12 | NUR ---
Pt had visitors this morning. Had to speak with visitors and explain 2 visitors per day only at this time. Visitors understanding.
[2020-12-06 14:00] VITALS: BP 143/76
--- NOTE | 2020-12-06 15:07 | NUR ---
Pt having more visitors wanting to come see. Nephew allowed to see pt through the window and then talks with him on the phone. Pt out for walk with [employer] - appears a little SOB but pt reports usually he is with activity. Denies any pain. NS IV fluids continue at 83 mls/hr. Lungs clear at this time.
--- NOTE | 2020-12-06 15:35 | NUR ---
PICC drsg noted to have a blood under drsg and blood saturated impregnated disc (all unchanged from this am). PICC drsg changed per protocol. Pt tolerated well. Noted to have mild swelling at insertion site prior to drsg change and unchanged after drsg change completed. Chilango wrap applied to site. Blood return noted upon restarting of IV fluids (stopped during drsg change).
--- NOTE | 2020-12-06 16:10 | NUR ---
IV fluids stopped per order.
[2020-12-06 16:37] VITALS: BP 147/83
--- NOTE | 2020-12-06 16:39 | NUR ---
RESP noted to be 36. Pt denies breathing is any different than his norm. Lungs clear. Will continue to monitor and recheck. Pt reading the paper.
--- NOTE | 2020-12-06 18:00 | NUR ---
Up to BR using cane with steady gait. Voids 200 mls yellow urine. Returns to recliner. SP02 97% on RA upon return to recliner.
--- NOTE | 2020-12-06 18:41 | NUR ---
PT RESTING IN CHAIR AND WATCHING TV. ADMINISTERED ANTIBIOTICS PT TOLERATED WELL.
--- NOTE | 2020-12-06 19:17 | NUR ---
Report to RALF Bergeron.
--- NOTE | 2020-12-06 20:36 | NUR ---
Patient resting in chair. No c/o pain or discomfort. Ambulated from room to hallway. 200 feet total. SBA with gait belt and cane assist. Ambulated to restroom. Independent with pericare and hand hygiene. Ambulated to chair. Patient states, "I'm feeling better since I got here." Call light within reach. Chair alarm on.
[2020-12-06 22:05] VITALS: BP 145/79
[2020-12-07 01:49] VITALS: BP 144/82
[2020-12-07 06:01] VITALS: BP 138/82
--- NOTE | 2020-12-07 07:27 | NUR ---
Report received from RALF Bergeron. Pt sleeping in bed.
[2020-12-07 10:01] VITALS: BP 122/72
--- NOTE | 2020-12-07 10:22 | NUR ---
GOOD APPETITE. PT SITTING IN CHAIR WATCHING TV. PT CALM AND ALERT. ANTIBIOTICS GIVEN W/O COMPLICATION. NO NEW ORDERS.
--- NOTE | 2020-12-07 10:47 | NUR ---
OFFICER REMAINS OUTSIDE OF PTS ROOM. BELONGINGS ARE PACKED AND PACKET IS READY FOR TRANSFER.
--- NOTE | 2020-12-07 12:14 | NUR ---
PT UP IN CHAIR EATING LUNCH TRAY. PT TOLERATING ACTIVITY.
[2020-12-07 13:59] VITALS: BP 136/81
--- NOTE | 2020-12-07 16:13 | NUR ---
PT SLEEPING IN CHAIR. ANCEF GIVEN. PT TOLERATED MEDICATION. NO COMPLICATIONS. PT DENIES PAIN.
[2020-12-07 16:41] VITALS: BP 145/88
--- NOTE | 2020-12-07 17:05 | NUR ---
PT EATING DINNER IN CHAIR. APPETITE GOOD.
--- NOTE | 2020-12-07 19:05 | NUR ---
Report recieved from Xochilt Hyatt RN
--- NOTE | 2020-12-07 19:10 | NUR ---
Patient resting in chair. SBA with cane and gait belt to restroom. No c/o pain or discomfort at this time. Chair alarm on. Call light within reach.
[2020-12-07 22:22] VITALS: BP 140/81
[2020-12-08 02:16] VITALS: BP 132/82
[2020-12-08 05:50] VITALS: BP 158/84
--- NOTE | 2020-12-08 06:13 | NUR ---
Patient independant with HS cares. Wore CPAP machine throughout night. Used urinal, as needed. No c/o pain or disomfort. Resting with eyes closed on hourly rounds. Bed in lowest and locked position. Call light within reach.
[2020-12-08 09:51] VITALS: BP 158/80
[2020-12-08 14:15] VITALS: BP 131/84
[2020-12-08 18:29] VITALS: BP 137/85
--- NOTE | 2020-12-08 19:09 | NUR ---
REPORT GIVEN TO RALF SANDOVAL
--- NOTE | 2020-12-08 19:10 | NUR ---
Report recieved from Renetta Chavarria RN
--- NOTE | 2020-12-08 20:55 | NUR ---
Patient talking on telephone in chair. A&ox4, no c/o pain or discomfort. Eager to go home tomorrow. Breathing tx complete. Chair alarm on. Call light within reach.
[2020-12-08 22:14] VITALS: BP 155/78
--- NOTE | 2020-12-08 22:24 | NUR ---
Results of blood cultures (12/04/20) given to Sybil Wiley APRN
[2020-12-09 02:28] VITALS: BP 129/81
[2020-12-09 05:53] VITALS: BP 134/86
--- NOTE | 2020-12-09 06:05 | NUR ---
Patient states, "I slept good" when asked how well he slept through the night. No c/o pain or discomfort. Eager to go home. Reports he has had skin lesions for 4 years and has been seen/treated by a donations attendant. Reports home is safe to return to. Has family and friends to support him at home. Bed in lowest and locked position. Call light within reach.
--- NOTE | 2020-12-09 07:15 | NUR ---
Report taken from RALF Bergeron. Pt is watching TV in his chair.
--- NOTE | 2020-12-09 07:34 | NUR ---
PT AMBULATED TO RESTROOM. PT WILL SIT IN CHAIR TO EAT BREAKFAST.
[2020-12-09 08:37] LABS: BASO # 0.04 (0.02-0.10); EOS % 5.2 % (0.0-4.0); HEMATOCRIT 37.5 % (42.0-52.0); HEMOGLOBIN 12.4 g/dL (13.5-18.0); LYMPH# 1.23 (1.50-4.00); MEAN CELL VOLUME 92 fl (78-100); MEAN CORPUSCULAR HEMOGLOBIN 30 pg (27-31); MEAN CORPUSCULAR HGB CONC 33 g/dL (33-37); MEAN PLATELET VOLUME 9.1 fl (7.4-10.4); MONO # 0.51 (0.20-0.80); NEU # 7.27 (1.40-6.50); PLATELET COUNT 219 K/mm3 (130-400); RED CELL DISTRIBUTION WIDTH 13.5 % (11.5-14.5); WHITE BLOOD COUNT 9.7 K/mm3 (4.8-10.8)
[2020-12-09 08:49] LABS: ALBUMIN 3.5 g/dL (3.4-4.8); POTASSIUM 4.2 mmol/L (3.5-5.1)
[2020-12-09 08:52] LABS: TOTAL PROTEIN 6.5 g/dL (6.2-8.1)
[2020-12-09 08:54] LABS: TOTAL BILIRUBIN 0.6 mg/dL (0.2-1.2)
[2020-12-09 09:48] VITALS: BP 116/73
--- NOTE | 2020-12-09 11:42 | NUR ---
PT UP IN CHAIR WATCHING TV. CAN GET A RIDE HOME IF DISCHARGED TODAY. PT A&OX4. PT AMBULATORY W/CANE, VOIDING AND HAVING BM.
[2020-12-09 14:12] VITALS: BP 122/78
--- NOTE | 2020-12-09 14:14 | NUR ---
CANCELED STRESS TEST FOR TOMMOROW. SPOKE WITH CHERYL AND WILL MAKE SURE PT RESCHEDULES AT DISCHARGE.
--- NOTE | 2020-12-15 10:32 | NUR ---
12/08/20 0900 PATIENT NOTED TO HAVE OPEN AREAS TO LOWER LIP. HAS 2 ROUND WOUNDS.
[2021-02-17] MEDS ORDERED: CEPHALEXIN500 M2 PO (11:33)
[2021-02-17] MEDS ORDERED: MUPIROCIN2% TP (11:33)
[2021-05-10] MEDS ORDERED: AMOXICILLIN875 MG PO (22:26)
[2021-05-10] MEDS ORDERED: SEPTRA DS 8001 TAB PO (22:26)
[2021-05-10] MEDS ORDERED: CLOBETASOL PROP15 GM TP (22:29)
[2021-05-10] MEDS ORDERED: RANOLAZINE ER500 MG PO (22:29)
[2021-05-10] MEDS ORDERED: ALLEGRA ALLERGY60 MG PO (22:29)
[2021-05-16] MEDS ORDERED: ISOSORBIDE30 MG PO (00:14)
[2021-05-26] MEDS ORDERED: DEXAMETHASONE2 M1 PO (12:54)
== END 2020-12-09 15:56 | disposition swing bed (61) | DRG 872 ==
LOC: MED/SURG 11:08
PROVIDERS: Nurse Practitioner; ADMIT Physician Assistant
DX: R78.81 Bacteremia (principal); I13.0 Hypertensive heart and chronic kidney disease with heart failure and stage 1 through stage 4 chronic kidney disease, or unspecified chronic kidney disease; I48.91 Unspecified atrial fibrillation; J44.9 Chronic obstructive pulmonary disease, unspecified; I50.9 Heart failure, unspecified; I08.3 Combined rheumatic disorders of mitral, aortic and tricuspid valves; N18.9 Chronic kidney disease, unspecified; E03.9 Hypothyroidism, unspecified; E66.9 Obesity, unspecified; B95.61 Methicillin susceptible Staphylococcus aureus infection as the cause of diseases classified elsewhere; R53.81 Other malaise; Z95.0 Presence of cardiac pacemaker; Z79.01 Long term (current) use of anticoagulants; Z79.82 Long term (current) use of aspirin
CPT/HCPCS: J0690; J2543; J3370; J7030; J7050; Q9967

== ENCOUNTER 2020-12-09 15:56 | Inpatient (IN) | payer MEDICARE, OTHER ==
[2020-12-09 17:08] VITALS: BP 122/78
[2020-12-10 05:39] VITALS: BP 143/81
[2020-12-10 16:18] VITALS: BP 141/91
[2020-12-11 05:52] VITALS: BP 102/60
[2020-12-11 07:42] VITALS: BP 120/79
[2020-12-11 15:01] VITALS: BP 121/76
[2020-12-12 05:57] VITALS: BP 153/85
[2020-12-12 17:14] VITALS: BP 130/78
[2020-12-13 05:02] VITALS: BP 146/86
[2020-12-13 17:12] VITALS: BP 131/84
[2020-12-14 06:03] VITALS: BP 145/88
[2020-12-14 17:04] VITALS: BP 135/85
[2020-12-15 05:20] VITALS: BP 125/81
[2020-12-15 17:25] VITALS: BP 130/88
[2020-12-16 05:23] VITALS: BP 133/87
[2020-12-16 17:04] VITALS: BP 133/83
[2020-12-17 05:46] VITALS: BP 128/82
[2020-12-17 09:18] LABS: BASO # 0.06 (0.02-0.10); EOS # 0.23 (0.04-0.40); EOS % 2.4 % (0.0-4.0); HEMATOCRIT 38.9 % (42.0-52.0); HEMOGLOBIN 12.9 g/dL (13.5-18.0); LYMPH# 1.11 (1.50-4.00); MEAN CELL VOLUME 92 fl (78-100); MEAN CORPUSCULAR HEMOGLOBIN 31 pg (27-31); MEAN CORPUSCULAR HGB CONC 33 g/dL (33-37); MEAN PLATELET VOLUME 9.5 fl (7.4-10.4); MONO # 0.51 (0.20-0.80); NEU # 7.46 (1.40-6.50); PLATELET COUNT 211 K/mm3 (130-400); RED BLOOD COUNT 4.23 M/mm3 (4.20-5.60); WHITE BLOOD COUNT 9.4 K/mm3 (4.8-10.8)
[2020-12-17 09:28] LABS: POTASSIUM 4.2 mmol/L (3.5-5.1)
[2020-12-17 09:30] LABS: CALCIUM 8.9 mg/dL (8.3-10.5)
[2020-12-17 17:03] VITALS: BP 118/77
[2020-12-18 06:06] VITALS: BP 146/73
[2020-12-18 17:26] VITALS: BP 132/85
[2020-12-19 05:37] VITALS: BP 131/86
[2021-02-17] MEDS ORDERED: MUPIROCIN2% TP (11:33)
[2021-02-17] MEDS ORDERED: CEPHALEXIN500 M2 PO (11:33)
[2021-05-10] MEDS ORDERED: SEPTRA DS 8001 TAB PO (22:26)
[2021-05-10] MEDS ORDERED: AMOXICILLIN875 MG PO (22:26)
[2021-05-10] MEDS ORDERED: RANOLAZINE ER500 MG PO (22:29)
[2021-05-10] MEDS ORDERED: ALLEGRA ALLERGY60 MG PO (22:29)
[2021-05-10] MEDS ORDERED: CLOBETASOL PROP15 GM TP (22:29)
[2021-05-16] MEDS ORDERED: ISOSORBIDE30 MG PO (00:14)
[2021-05-26] MEDS ORDERED: DEXAMETHASONE2 M1 PO (12:54)
== END 2020-12-19 10:25 | disposition home or self-care (01) | DRG 872 ==
LOC: MED/SURG 15:56
PROVIDERS: ADMIT Nurse Practitioner Family
DX: R78.81 Bacteremia (principal); N17.9 Acute kidney failure, unspecified; I13.0 Hypertensive heart and chronic kidney disease with heart failure and stage 1 through stage 4 chronic kidney disease, or unspecified chronic kidney disease; I48.91 Unspecified atrial fibrillation; J44.9 Chronic obstructive pulmonary disease, unspecified; I50.9 Heart failure, unspecified; I35.0 Nonrheumatic aortic (valve) stenosis; E03.9 Hypothyroidism, unspecified; N18.9 Chronic kidney disease, unspecified; E66.9 Obesity, unspecified; B95.61 Methicillin susceptible Staphylococcus aureus infection as the cause of diseases classified elsewhere; R53.81 Other malaise; Z68.34 Body mass index [BMI] 34.0-34.9, adult; Z79.82 Long term (current) use of aspirin; Z79.01 Long term (current) use of anticoagulants; Z95.0 Presence of cardiac pacemaker
CPT/HCPCS: J0690